=== PATIENT | male | born 1960 | race Caucasian/White ===

== ENCOUNTER 2022-07-03 22:37 | Inpatient (IN) | payer OTHER ==
[~2022-07-03] VITALS: Ht 188 cm; Wt 78.9 kg
[2022-07-04] VITALS (27 sets, daily range): BP systolic 102–157; BP diastolic 62–101
[2022-07-04 04:57] LABS: Source, Urine Clean Catch
[2022-07-04 05:28] LABS: Hematocrit 30.9 % (37.0-53.0); Hemoglobin 10.3 g/dL (13.5-17.5); Mean Corpuscular HGB 36.4 pg (26.0-34.0); Mean Corpuscular HGB Conc 33.3 g/dL (31.5-36.5); Mean Corpuscular Volume 109 fL (80-100); Mean Platelet Volume 9.3 fL (9.1-12.4); Platelet Count 110 K/mm3 (150-400); RDW Coefficient Variation 14.9 % (11.7-14.2); Red Blood Cell Count 2.83 M/mm3 (4.30-5.90); White Blood Cell Count 8.27 K/mm3 (4.00-11.30)
[2022-07-04 05:38] LABS: Bilirubin, Urine Neg (Neg); Blood, Urine 1+ (Neg); Glucose Qualitative, Urine Neg (Neg); Ketones, Urine Neg (Neg); Leukocyte Esterase, Urine Neg (Neg); Nitrite, Urine Neg (Neg); Protein, Urine 2+ (Neg); Urobilinogen, Urine NORM (Normal); pH, Urine 6.5 (5.0-8.0)
[2022-07-04 05:43] LABS: Appearance, Urine Clear (Clear); Color, Urine Yellow (P-Yellow)
[2022-07-04 05:46] LABS: Bacteria Not Seen /hpf; Red Blood Cells, Urine 0-2 /hpf (0-2); Squamous Epithelial Cells Rare /hpf (Few); White Blood Cells, Urine Not Seen /hpf (0-5)
[2022-07-04 05:47] LABS: Mucus Mod (0-Heavy)
[2022-07-04 05:55] LABS: CPK Creatine Kinase 145 U/L (39-308); Ethanol (Alcohol), Blood, Med <3 mg/dL; Magnesium, Blood 1.8 mg/dL (1.6-2.4)
[2022-07-04 05:56] LABS: U Benzodiazapine Screen DETECTED
[2022-07-04 05:57] LABS: U Amphetamine Screen Not Detected; U Barbituate Screen DETECTED; U Buprenorphine Screen Not Detected; U Cannabinoids Screen Not Detected; U Cocaine Screen Not Detected; U Methadone Screen Not Detected; U Methamphetamine Screen Not Detected; U Opiates Screen Not Detected; U Oxycodone Screen DETECTED; U Phencyclidine Screen Not Detected; U Propoxyphene Screen Not Detected
[2022-07-04 06:03] LABS: Alanine Aminotransfer (ALT/SGP 636 U/L (12-78); Albumin, Blood 3.1 g/dL (3.4-5.0); Albumin/Globulin Ratio 0.7 (0.8-1.8); Alk Phos 142 U/L (50-136); Anion Gap 4 mmol/L (6-16); Aspartate Aminotrans (AST/SGOT 1810 U/L (12-37); Bilirubin, Total 1.4 mg/dL (0.1-1.0); Blood Urea Nitrogen 12 mg/dL (8-24); CO2, Blood 25 mmol/L (21-32); Calcium, Blood 8.8 mg/dL (8.5-10.1); Chloride, Blood 103 mmol/L (98-108); Creatinine, Blood 0.52 mg/dL (0.60-1.20); Globulin, Blood 4.5 g/dL (2.2-4.0); Glomerular Filtration Rate 114 (60-); Glucose, Blood 99 mg/dL (70-99); Potassium, Blood 4.1 mmol/L (3.5-5.5); Sodium, Blood 132 mmol/L (136-145); Total Protein, Blood 7.6 g/dL (6.4-8.2)
--- NOTE | 2022-07-04 06:31 | NUR ---
ARRIVAL TO ICU/END OF SHIFT SUMMARY PT ARRIVED TO ICU 11 AT 0405 VIA ED BED AND TRANSFERED OVER TO ICU BED VIA SLIDE SHEET. HERE IN ICU D/T FALLING AT ADAPT WHILE GOING THROUGH ETOH WITHDRAWLS AND IS ON A PRECEDEX GTT. HE IS REACTIVE TO VERBAL STIMULI AND ORIENTED TO SELF; SLURRED SPEECH AND MUMBLES NOTED; CANNOT HOLD A CONVERSATIONS WITH PT; CIWA 16; RESTLESS AT TIMES, PRN ATIVAN GIVEN ONCE; PRECEDEX INFUSING AT 0.2MCG/KG/HR. SPO2 >98% ON RA. TEMP ON ARRIVAL 101.9, FAN PLACED, TEMP NOW 99.8. HR 90-115. BP STABLE, SBP 130'S. CONDOM CATH PLACED D/T EPISODES OF INCONTINENCE; UA SENT. D/T FALLS, PT HAS A VARIETY OF BRUISES AT VARIES HEALING STAGES; BRUISES NOTED ON RUE, STERNUM, CHEST, RT ABD/TRUNK, CHIN, NECK, LT EYE, NOSE (WHICH IS ALSO BROKEN) AND LT WRIST. LT WRIST IS BROKEN AND IN SOFT SPLINT FROM ED. RT SHOULDER IS VERY SWOLLEN AND BRUISED, SCAN SHOWED THE SHOULDER REFRACTURING. WILL REPORT TO AM RN WHEN AVAILABLE.
[2022-07-04 06:56] LABS: BASOPHILS ABSOLUTE MAN 0.08 K/mm3 (0.00-0.23); BASOPHILS PERCENT MAN 1 % (0-2); EOSINOPHILS PERCENT MAN 0 % (0-6); LYMPHOCYTES ABSOLUTE MAN 0.41 K/mm3 (0.84-5.20); LYMPHOCYTES PERCENT MAN 5 % (21-46); MONOCYTES ABSOLUTE MAN 0.08 K/mm3 (0.16-1.47); MONOCYTES PERCENT MAN 1 % (4-13); NEUTROPHILS ABSOLUTE MAN 7.69 K/mm3 (1.96-9.15); SEG NEUTROPHILS PERCENT MAN 93 % (41-73); TOTAL CELLS COUNTED 100
--- NOTE | 2022-07-04 07:57 | NUR ---
ASSUMED CARE BEDSIDE REPORT FROM MARLEN CORONADO AT 0700. PT RESTING IN BED. PRECEDEX GTT INFUSING FOR ETOH W/D. PT WAKES c VERBAL STIMULI. MUMBLES INCOHERANTLY. UNABLE TO ANSWER QUESTIONS. FOLLOWS SIMPLE COMMANDS. RETURNS TO SLEEP WHEN UNDISTURBED. SR, RATE 70-80'S ON MONITOR. BP STABLE. LUNGS DIM IN BASES, RA, O2 SATS >94%. SNORING RESP. ABD ROUND, SOFT, NON TENDER. BT X 4. CONDOM CATH IN PLACE D/T INCONTINENCE. PT HAS SIGNIFICANT BRUISING TO RIGHT SHOULDER, RIGHT TRUNK/HIP, BILATERAL EYES, RIGHT JAW, AND STERNUM. SEE PHOTOS IN CHART. U/S AT BEDSIDE. WILL CONTINUE TO MONITOR.
[2022-07-04 12:39] LABS: International Normalized Ratio 1.05
--- NOTE | 2022-07-04 17:08 | NUR ---
Pt. is resting but responds when I enter the room. Pt. is intially guarded, and displays evidence of being somnolent. Attempt to build rapport. Pt. requests a Rosary. Prayed with Pt. and then provided him with a rosary. Pt. verbalized gratitude for the visit and welcomed this handy worker to return.
--- NOTE | 2022-07-04 18:02 | NUR ---
SHIFT SUMMARY PT A&OX 3. FOLLOWS COMMANDS. CONTINUES TO HAVE GARBLED SPEECH THAT IS DIFFICULT TO UNDERSTAND BUT ANSWERS QUESTIONS APPROPRIATELY. PRECEDEX D/C'D. CIWA 5-8 THIS SHIFT. ORTHO CONSULT COMPLETE. SLING PLACED TO RIGHT ARM. TOLERATING DIET WELL. WILL CONTINUE TO MONITOR UNTIL REPORT TO ONCOMING NURSE.
[2022-07-05] VITALS (11 sets, daily range): BP systolic 100–133; BP diastolic 60–85
[2022-07-05 07:14] LABS: Hematocrit 27.6 % (37.0-53.0); Hemoglobin 9.2 g/dL (13.5-17.5); Mean Corpuscular HGB 35.9 pg (26.0-34.0); Mean Corpuscular HGB Conc 33.3 g/dL (31.5-36.5); Mean Corpuscular Volume 108 fL (80-100); Mean Platelet Volume 9.2 fL (9.1-12.4); Platelet Count 75 K/mm3 (150-400); RDW Coefficient Variation 14.6 % (11.7-14.2); RDW Standard Deviation 56.6 fL (35.1-46.3); Red Blood Cell Count 2.56 M/mm3 (4.30-5.90); White Blood Cell Count 1.88 K/mm3 (4.00-11.30)
[2022-07-05 07:30] LABS: Albumin, Blood 2.8 g/dL (3.4-5.0); Albumin/Globulin Ratio 0.7 (0.8-1.8); Bilirubin, Total 0.7 mg/dL (0.1-1.0); Bun/Creatinine Ratio 18.3 (12.0-20.0); Creatinine, Blood 0.55 mg/dL (0.60-1.20); Globulin, Blood 3.9 g/dL (2.2-4.0); Magnesium, Blood 1.9 mg/dL (1.6-2.4); Phosphorus, Blood 3.1 mg/dL (2.5-4.9); Potassium, Blood 3.9 mmol/L (3.5-5.5); Total Protein, Blood 6.7 g/dL (6.4-8.2)
--- NOTE | 2022-07-05 11:14 | NUR ---
Pt. is resting but responds when I enter the room. Pt. is pleasant and verbalizes gratitude for the rosary that he received yesterday. Re-established rapport. Pt. displayed evidence of somnolence, but displayed an agreeable spirit. Prayed with Pt. Pt. verbalized gratitude for the spiritual care visit.
--- NOTE | 2022-07-05 16:48 | NUR ---
SHIFT SUMMARY PT CONTINUES TO REST IN BED. UP TO BEDSIDE COMODE WITH WALKER AND ASSISTANCE. OCCASIONALLY INCONTINENT, ATTENDS IN PLACE. PT ANSWERS MOST QUESTIONS APPROPRIATELY AND FOLLOWS COMMANDS. PT COMPLAINS OF PAIN, MEDICATED PER EMAR. BRUISING TO RIGHT SHOULDER, ARM, CHIN AND NECK REMAINS UNCHANGED. SLING REMAINS IN PLACE ON RIGHT ARM, SOFT SPLINT REMAINS IN PLACE ON LEFT WRIST. HR 70-90'S, NSR, BP STABLE. NO ACUTE EVENTS THIS SHIFT. WILL CONTINUE TO MONITOR AND GIVE REPORT TO ONCOMING RN.
--- NOTE | 2022-07-05 20:42 | NUR ---
ASSUMED CARE. PT MORE ALERT AND ORIENTED TODAY. FOLLOWING COMMANDS. ABLE TO USE CALL LIGHT AND MAKE NEEDS KNOWN. CROSSROADS DROPPED OFF HIS BELONGINGS. HE WAS SEARCHING FOR HIS HEARING AIDS, THEY WERE NOT IN HIS BELONGINGS. STATES PAIN IS 9/10 IN SHOULDER. SWELLING GONE DOWN IN LIP AND CHIN, ABLE TO SPEAK MORE CLEARLY. GOOD APPETITE, BM TODAY PER PATIENT. URINAL EMPTIED. DENIES ANY NEEDS. SEE ASSESSMENT FOR FURTHER DETAILS.
--- NOTE | 2022-07-06 00:42 | NUR ---
REPORT GIVEN TO TIA RN FOR TRANSFER TO MEDICAL FLOOR ROOM 335.
[2022-07-06 01:06] VITALS: BP 110/78
[2022-07-06 04:38] VITALS: BP 126/83
--- NOTE | 2022-07-06 06:07 | NUR ---
PT TRANSFERED AFTER MD FROM ICU. PT PLEASANT, ORIENTED TO ROOM. PT ASKING ABOUT PAIN MEDICATION AND AVAILABILTY. WENT OVER MAR WITH PT, EXPLAINING WHEN MEDICATION IS AVAILABLE AND APPROPRIATE DOSING. PT HAD BLODDY NOSE WHILE SLEEPING, CLOTTED ON OWN. PT STATES THIS IS NOT UNUSUAL.
[2022-07-06 07:45] VITALS: BP 133/86
[2022-07-06 07:59] LABS: Hematocrit 28.8 % (37.0-53.0); Hemoglobin 9.5 g/dL (13.5-17.5); Mean Corpuscular HGB 35.8 pg (26.0-34.0); Mean Corpuscular Volume 109 fL (80-100); Mean Platelet Volume 9.6 fL (9.1-12.4); Platelet Count 77 K/mm3 (150-400); RDW Coefficient Variation 14.5 % (11.7-14.2); RDW Standard Deviation 56.6 fL (35.1-46.3); Red Blood Cell Count 2.65 M/mm3 (4.30-5.90); White Blood Cell Count 1.54 K/mm3 (4.00-11.30)
[2022-07-06 08:17] LABS: Bun/Creatinine Ratio 17.5 (12.0-20.0); Calcium, Blood 8.1 mg/dL (8.5-10.1); Creatinine, Blood 0.63 mg/dL (0.60-1.20); Potassium, Blood 3.6 mmol/L (3.5-5.5)
[2022-07-06 15:22] VITALS: BP 139/79
--- NOTE | 2022-07-06 16:56 | NUR ---
PT IS A/OX3, PLEASANT AND COOPERATIVE. THE PT IS UP WITH MINIMAL ASSIST TO THE CHAIR AND TO THE BATHROOM. PT WAS UP AND AMBULATED IN THE [place] TODAY WITH THE PHYSICAL THERAPIST. THE PT WAS MEDICATED FOR PAIN T/O THE DAY. PT APPEARS TO BE BREATHING EASILY ON RA AT THIS TIME. THE PT HAS HAD FREQUANT EPTAXIA TODAY. CALL LIGHT IN REACH. WILL CONTINUE TO MONITOR AND ASSESS FOR CHANGES.
[2022-07-06 19:23] VITALS: BP 140/83
[2022-07-07 02:51] VITALS: BP 150/84
[2022-07-07 05:10] LABS: Hematocrit 29.4 % (37.0-53.0); Hemoglobin 9.6 g/dL (13.5-17.5); Mean Corpuscular HGB 35.2 pg (26.0-34.0); Mean Corpuscular HGB Conc 32.7 g/dL (31.5-36.5); Mean Corpuscular Volume 108 fL (80-100); Mean Platelet Volume 9.8 fL (9.1-12.4); Platelet Count 86 K/mm3 (150-400); RDW Coefficient Variation 14.4 % (11.7-14.2); RDW Standard Deviation 55.8 fL (35.1-46.3); Red Blood Cell Count 2.73 M/mm3 (4.30-5.90); White Blood Cell Count 3.24 K/mm3 (4.00-11.30)
[2022-07-07 05:41] LABS: Bun/Creatinine Ratio 18.9 (12.0-20.0); Calcium, Blood 8.4 mg/dL (8.5-10.1); Creatinine, Blood 0.58 mg/dL (0.60-1.20); Potassium, Blood 3.7 mmol/L (3.5-5.5)
[2022-07-07 07:21] VITALS: BP 153/79
[2022-07-07 16:50] VITALS: BP 132/78
--- NOTE | 2022-07-07 17:38 | NUR ---
PT IS A/OX4, PLEASANT AND COOPERATIVE. THE PT IS UP WITH MINIMAL ASSIST. THE PT WAS UP IN THE CHAIR TODAY FOR BREAKFAST AND LUNCH. THE PT WAS MEDICATED FOR PAIN T/O THE SHIFT TODAY. SINCE AROUND 1200 TODAY THE PT'S EPITAXISIS HAS STOPPED. PT APPEARS TO BE BREATHING EASILY ON RA AT THIS TIME. CALL LIGHT IN REACH. RIGHT ARM IN A SLING. CALL LIGHT IN REACH. WILL CONTINUE TO MONITOR AND ASSESS FOR CHANGES
[2022-07-07 19:12] VITALS: BP 113/63
[2022-07-07] MEDS ORDERED: LISINOPRIL2.5 MG PO (23:31)
[2022-07-07] MEDS ORDERED: VITAMIN D PO (23:32)
[2022-07-07] MEDS ORDERED: ASPIRIN REGIMEN81 MG PO (23:33)
[2022-07-07] MEDS ORDERED: METOPROLOL TART25 MG PO (23:33)
[2022-07-07] MEDS ORDERED: LIPITOR80 MG PO (23:34)
[2022-07-07] MEDS ORDERED: OXYC5 PO (23:34)
[2022-07-08 02:53] VITALS: BP 140/79
[2022-07-08 05:11] LABS: BASOPHILS ABSOLUTE AUTO 0.03 K/mm3 (0.00-0.23); BASOPHILS PERCENT AUTO 1 % (0-2); EOSINOPHILS PERCENT AUTO 2 % (0-6); Mean Corpuscular HGB Conc 33.3 g/dL (31.5-36.5); Mean Corpuscular Volume 108 fL (80-100); Mean Platelet Volume 10.5 fL (9.1-12.4); Platelet Count 111 K/mm3 (150-400); RDW Coefficient Variation 14.3 % (11.7-14.2); RDW Standard Deviation 56.6 fL (35.1-46.3); White Blood Cell Count 4.42 K/mm3 (4.00-11.30)
[2022-07-08 05:13] LABS: IMMATURE GRAN ABSOLUTE AUTO 0.01 K/mm3 (0.00-0.10); IMMATURE GRAN PERCENT AUTO 0 % (0-1); LYMPHOCYTES ABSOLUTE AUTO 1.59 K/mm3 (0.84-5.20); LYMPHOCYTES PERCENT AUTO 36 % (21-46); MONOCYTES ABSOLUTE AUTO 1.13 K/mm3 (0.16-1.47); MONOCYTES PERCENT AUTO 26 % (4-13); NEUTROPHILS ABSOLUTE AUTO 1.56 K/mm3 (1.96-9.15); NEUTROPHILS PERCENT AUTO 35 % (41-73)
[2022-07-08 07:26] VITALS: BP 150/82
[2022-07-08 15:24] VITALS: BP 163/91
[2022-07-08] MEDS ORDERED: ACET325 PO (15:25)
[2022-07-08] MEDS ORDERED: GABA100 PO (15:27)
[2022-07-08] MEDS ORDERED: AMOCLA875 PO (15:27)
[2022-07-08] MEDS ORDERED: HYDHCL25 PO (15:30)
[2022-07-08] MEDS ORDERED: Nicoderm Cq1 EAC1 TOP (15:31)
--- NOTE | 2022-07-08 15:50 | NUR ---
DISCHARGE SUMMARY DISCHARGE, FOLLOWUP, AND MEDICATION INSTRUCTIONS GIVEN TO PT. PT VOICED COMPLETED UNDERSTANDING AND HAS NO QUESTIONS AT THIS TIME. IV REMOVED WITH CATHETER TIP INTACT. TELE BOX REMOVED AND RETURN TO MONITOR. PT RIDE SCHEDULED FOR 1630, WILL CONTINUE TO MONITOR. CALL LIGHT WITHIN REACH.
== END 2022-07-08 16:29 | disposition home or self-care (01) | DRG 896 ==
LOC: ER 22:37 → MEDS 07-04 03:17 → ICUW 07-04 03:17 → MEDS 07-06 01:08
PROVIDERS: Family Medicine; Student in an Organized Health Care Education/Training Program; ADMIT Internal Medicine
PROC: 3E03329 Introduction of Other Anti-infective into Peripheral Vein, Percutaneous Approach (ICD-10-PCS; principal; 2022-07-04)
PROC: 2W3AX1Z Immobilization of Right Upper Arm using Splint (ICD-10-PCS; 2022-07-04)
PROC: 2W3FX1Z Immobilization of Left Hand using Splint (ICD-10-PCS; 2022-07-04)
PROC: HZ2ZZZZ Detoxification Services for Substance Abuse Treatment (ICD-10-PCS; 2022-07-04)
DX: F10.239 Alcohol dependence with withdrawal, unspecified (principal); A41.50 Gram-negative sepsis, unspecified; G92.8 Other toxic encephalopathy; S52.502A Unspecified fracture of the lower end of left radius, initial encounter for closed fracture; S52.612A Displaced fracture of left ulna styloid process, initial encounter for closed fracture; M97.31XA Periprosthetic fracture around internal prosthetic right shoulder joint, initial encounter; K04.7 Periapical abscess without sinus; R04.0 Epistaxis; K74.60 Unspecified cirrhosis of liver; I10 Essential (primary) hypertension; R47.81 Slurred speech; S10.83XA Contusion of other specified part of neck, initial encounter; S60.222A Contusion of left hand, initial encounter; S60.221A Contusion of right hand, initial encounter; R56.9 Unspecified convulsions; R29.6 Repeated falls; K70.10 Alcoholic hepatitis without ascites; T17.908A Unspecified foreign body in respiratory tract, part unspecified causing other injury, initial encounter; F17.210 Nicotine dependence, cigarettes, uncomplicated; W19.XXXA Unspecified fall, initial encounter; D72.819 Decreased white blood cell count, unspecified; Y83.8 Other surgical procedures as the cause of abnormal reaction of the patient, or of later complication, without mention of misadventure at the time of the procedure; Z71.41 Alcohol abuse counseling and surveillance of alcoholic
CPT/HCPCS: 29125; 36415; 70450; 71045; 72125; 73030; 73060; 73090; 73100; 73620; 76705; 80048; 80053; 81001; 82550; 82607; 82746; 83605; 83690; 83735; 84100; 85025; 85027; 85610; 87040; 94760; 96374; 96375; 96376; 97110; 97116; 97162; 97166; 97530; 99285-25; A9270; G0480; J0295; J1170; J1650; J1885; J2060; J2405; J2560; J3411; J7050